=== PATIENT | male | born 1975 | race Caucasian/White ===

== ENCOUNTER 2018-11-19 07:51 | Outpatient (CLI) | payer BC ==
[2018-11-19] MEDS ORDERED: Iopamidol 370 76% 100 ML VIAL ONE (09:00)
--- NOTE | 2018-11-19 09:29 | CT ---
CT ABDOMEN AND PELVIS WITH IV CONTRAST 11/19/2018 CLINICAL INFORMATION: Epigastric abdominal pain and loss of appetite for 6 weeks. COMPARISON: None. Technique: Multiple contiguous axial CT images are obtained through the abdomen and pelvis with IV contrast. Cor onal reformatted images are provided. FINDINGS: Lower Chest: Lung bases are clear. Vessels: Abdominal aorta is normal in caliber. Abdomen: Portal vein:Patent Gallbladder: Within normal limits for CT imaging. Liver: within normal limits. Spleen: within normal limits. Pancreas: within normal limits. Adrenals: within normal limits. Kidneys: A few tiny subcentimeter too small to characterize hypodense lesions are seen in the midport ion right kidney. The kidneys otherwise have a normal CT appearance bilaterally. Bowel: There is evidence of bowel malrotation. The duodenum does not course across the midline, and t he small bowel is predominantly within the central and right aspect of the abdomen. The colon is in the left aspect of the abdomen and centrally with the cecum noted in the pelvis. There is no evidence of a bowel obstruction. Appendix: The appendix is visualized and normal in caliber. Peritoneum: No ascites or free air; no fluid collection. Mesentery and Retroperitoneum: No enlarged mesenteric or retroperitoneal lymph nodes. Abdominal Wall: within normal limits. Pelvis: Reproductive Organs: No pelvic masses. Pelvis within normal limits. Bladder: within normal limits. Bones: No suspicious lytic or sclerotic osseous lesions are seen. A few bone islands are seen within the proximal femurs bilaterally as well as in the pelvis. IMPRESSION: 1. Evidence of bowel malrotation with loops of small bowel predominately within the central and right aspect of the abdomen, and the colon is within the central and left aspect of the abdomen. No bowel obstruction is seen.
== END 2018-11-19 07:52 | disposition home or self-care (01) ==
LOC: SCSCT 07:51
PROVIDERS: ATTEND Internal Medicine Gastroenterology
DX: R10.13 Epigastric pain (principal); R10.12 Left upper quadrant pain; Q43.3 Congenital malformations of intestinal fixation
CPT/HCPCS: 74177; Q9967

== ENCOUNTER 2018-12-29 08:27 | Outpatient (CLI) | payer BC ==
--- NOTE | 2018-12-29 17:44 | RAD ---
UPPER GI: SMALL BOWEL FOLLOW THROUGH: 12/29/18 COMPARISON: None. HISTORY: Left upper quadrant pain, congenital malrotation. FINDINGS: [employer] Specialist radiograph of the abdomen/pelvis demonstrates a nonobstructed bowel gas pattern. Double contrast upper GI is performed. Esophagus appears normal in course and contour. The stomach demonstrates a normal rugal fold pattern and demonstrates normal emptying. No mucosa abno rmality of the esophagus or stomach is appreciated. Gastric antrum appears normal. As per the provided clinical history, there is congenital malrotation. Contrast media exiting the sto mach fills a nondistended redundant duodenum within the right upper quadrant. There are numerous nond ilated loops of small bowel throughout the right abdomen. There is no small bowel within the left abd omen consistent with malrotation. Transition from the stomach to the colon is delayed. The patient was imaged over 1.[address] media extended to the pelvis within small bowel but not quite to the level of the cecum/colon. The two hour imaging also demonstrates the contrast media to not yet reach the colon. The patient was un able to complete the examination at this time and instead returned for a KUB approximately eight hour s following ingestion which demonstrates contrast media within the colon. The cecum is in the pelvis. IMPRESSION: Findings consistent with the provided history of malrotation. All small bowel is in the right abdomen . The cecum is in the pelvis and the colon is in the left abdomen. Of note, there is delayed transit from the stomach to the cecum which is greater than two hours. POS: DEEJAY
== END 2018-12-29 08:28 | disposition home or self-care (01) ==
LOC: RAD 08:27
PROVIDERS: ATTEND Internal Medicine Gastroenterology
DX: R10.12 Left upper quadrant pain (principal); Z92.3 Personal history of irradiation
CPT/HCPCS: 74249